=== PATIENT | male | born 1965 | race Hispanic/Latino ===

== ENCOUNTER 2022-12-30 08:48 | Outpatient (CLI) | payer OTHER | END 2022-12-30 08:49 | disposition home or self-care (01) | LOC: BURRAD 08:48 | PROVIDERS: ATTEND Nurse Practitioner Family | DX: M25.571 Pain in right ankle and joints of right foot (principal); M25.471 Effusion, right ankle; M77.9 Enthesopathy, unspecified; Z87.81 Personal history of (healed) traumatic fracture ==

== ENCOUNTER 2023-07-06 08:18 | Emergency (ER) | payer OTHER ==
[2023-07-06] MEDS ORDERED: Meclizine HCl 25 MG TAB ONE (08:42)
== END 2023-07-06 08:56 | disposition home or self-care (01) ==
LOC: BURERS 08:18
DX: H61.23 Impacted cerumen, bilateral (principal); I10 Essential (primary) hypertension; E11.9 Type 2 diabetes mellitus without complications; Z79.84 Long term (current) use of oral hypoglycemic drugs; Z79.899 Other long term (current) drug therapy
CPT/HCPCS: 99283

== ENCOUNTER 2024-01-06 13:05 | Outpatient (CLI) | payer OTHER | END 2024-01-06 13:06 | disposition home or self-care (01) | LOC: BURRAD 13:05 | PROVIDERS: ATTEND Family Medicine | DX: M79.604 Pain in right leg (principal); M47.816 Spondylosis without myelopathy or radiculopathy, lumbar region | CPT/HCPCS: 72100 ==

== ENCOUNTER 2024-04-04 13:12 | Emergency (ER) | payer OTHER ==
[~2024-04-04 13:12] MED LIST: Iopamidol 370 76% 100 ML VIAL ONE
[2024-04-04 13:34] LABS: #Basophils 0.1 thou/uL (0.0-0.2); #Lymphocytes 1.2 thou/uL (1.20-3.40); #Monocytes 0.5 thou/uL (0.11-0.59); %Basophils 0.9 % (0.0-1.0); %Eosinophils 0.4 % (0.0-10.0); %Lymphocytes 13.6 % (21.0-51.0); %Monocytes 5.4 % (0.0-10.0); %Neutrophils 79.7 % (42.0-75.0); Hematocrit 38.2 % (42.0-52.0); Hemoglobin 13.1 g/dL (14.0-18.0); Mean Corpuscular HGB CONC 34.3 g/dL (32.0-36.0); Mean Corpuscular Hemoglobin 31.7 pg (27.0-31.0); Mean Corpuscular Volume 92.4 fl (78.0-98.0); Mean Platelet Volume 7.6 fL (7.4-10.4); Platelet Count 198 10x3/uL (130-400); RBC Distribution Width 11.3 % (11.5-14.5); Red Blood Cell (RBC) Count 4.14 mill/uL (4.70-6.10); White Blood Cell (WBC) Count 8.8 10x3/uL (4.8-10.8)
[2024-04-04 13:43] LABS: PTT 27.6 sec (22.9-36.1); Prothrombin Time 13.3 sec (12.0-14.7)
[2024-04-04 13:50] LABS: ALT (SGPT) 28 U/L (8-55); AST (SGOT) 19 U/L (5-34); Albumin 4.2 g/dL (3.5-5.0); Alkaline Phosphatase 60 U/L (40-110); Anion Gap 15 mmol/L (10-20); BUN (Urea Nitrogen) 15 mg/dL (8.4-25.7); Calc. Creatinine Clearance 0 mL/min (70-130); Carbon Dioxide 23 mmol/L (22-29); Chloride 102 mmol/L (98-107); Estimated GFR 84; Globulin 3.1 g/dL (2.4-3.5); Glucose 107 mg/dL (70-105); Potassium 3.2 mmol/L (3.5-5.1); Protein, Total 7.3 g/dL (6.0-8.3); Sodium 137 mmol/L (136-145)
[2024-04-04 13:51] LABS: Troponin I 0.033 ng/mL (< 0.028)
[2024-04-04 13:56] LABS: Acetaminophen Less than 10 mcg/mL (10.0-30.0); Alcohol Less than 10.0 mg/dL (Less than 10); Salicylate Less than 8.0 mg/dL (15.0-30.0)
[2024-04-04 13:57] LABS: Bilirubin Negative (Negative); Blood, Urine Negative (Negative); Clarity Clear (Clear); Glucose, Urine (Dipstick) Negative (Negative); Ketone, Urine Negative (Negative); Leukocyte Negative (Negative); Nitrite Negative (Negative); Protein, Urine (Dipstick) Negative (Neg-Trace); Urobilinogen 0.2 mg/dL (Less than 2)
[2024-04-04 13:58] LABS: Specific Gravity, Urine 1.005 (1.002-1.036)
[2024-04-04 13:59] LABS: Bacteria/HPF Rare-Few HPF (None Seen); CAUTI Indications for Culture Alt mental st,lethar; RBC/HPF 0-3 HPF (0-3); Squamous Epithelial None Seen HPF (0-3); Urine Culture Reflex No No; WBC/HPF None Seen HPF (0-3)
[2024-04-04 14:10] LABS: Amphetamine Not Detected (NotDetected); Barbiturates Screen Not Detected (NotDetected); Benzodiazepine Screen Not Detected (NotDetected); Cocaine Metabolite Screen Not Detected (NotDetected); Methadone Not Detected (NotDetected); Methamphetamine Not Detected (NotDetected); Opiate Screen Not Detected (NotDetected); Oxycodone Screen Not Detected (NotDetected); Phencyclidine (PCP) Not Detected (NotDetected); THC/Cannabinoid Screen Not Detected (NotDetected); Tricyclic Screen Not Detected (NotDetected)
[2024-04-04] MEDS ORDERED: Meclizine HCl 25 MG TAB ONE (14:21)
[2024-04-04] MEDS ORDERED: Aspirin Chewable 81 MG TAB ONE (14:43)
[2024-04-04] MEDS ORDERED: Potassium Chloride 20 MEQ TAB ONE (15:20)
== END 2024-04-04 15:38 | disposition short-term general hospital (02) ==
LOC: BURERS 13:12
DX: R42 Dizziness and giddiness (principal); R74.8 Abnormal levels of other serum enzymes; I10 Essential (primary) hypertension; E11.9 Type 2 diabetes mellitus without complications
CPT/HCPCS: 36416; 70450; 70496; 70498; 80053; 80306; 80307; 81001; 84484; 85025; 85610; 85730; 93005; Q9967